=== PATIENT | female | born 1940 | race Caucasian/White ===

== ENCOUNTER 2016-06-15 14:07 | Day surgery (SDC) | payer OTHER ==
[2016-06-15] MEDS ORDERED: LIDOCAINE 1% 5 ML SDV ID PRN (14:47)
[2016-06-15] MEDS ORDERED: LR 1,000 ML IV ONE (14:47)
[2016-06-15] MEDS ORDERED: MIDAZOLAM 2 MG/2 ML VIAL ONE (15:58)
[2016-06-15] MEDS ORDERED: fentaNYL 100 MCG/2 ML INJ ONE (16:10)
[2016-06-15] MEDS ORDERED: PROPOFOL 200 MG/20 ML VIAL ONE (16:11)
--- NOTE | 2016-06-15 19:01 | GPN ---
[f rep st] PROCEDURE NOTE PREPROCEDURE DIAGNOSIS: Past history of colon cancer, needs surveillance colonoscopy. POSTPROCEDURE DIAGNOSIS: Three small colon polyps, status post removal. PROCEDURE: Colonoscopy with biopsies. MEDICATIONS: Monitored anesthesia care. INDICATIONS: The patient is a 76-year-old female with a history of colon cancer, which was resected in 2006. She had stage III colon cancer at that time. She underwent chemotherapy and surgical resec tion. Last colonoscopy was in 2007. She has a pacemaker and is on Xarelto for atrial fibrillation. She is here today for repeat surveillance colonoscopy. The risks and benefits of the procedure were discussed with the patient and consent obtained. The risks include, but are not limited to, bleedin g, perforation, missed lesions, and sedation. The patient is ASA class 3. DESCRIPTION OF PROCEDURE: The adult colonoscope was advanced into the cecum, which appeared normal. The ileocecal valve, appendiceal orifice, ascending colon, hepatic flexure appeared normal. In the transverse colon, there were 2 small polyps, which were removed using cold biopsy forceps. These pasquale yps measured between 1 and 2 mm in diameter. The splenic flexure was normal. The descending colon w as normal. A 2 mm polyp was removed from the sigmoid colon using cold biopsy forceps and sent to [facility] for further evaluation. An anastomosis was seen in the rectosigmoid area. No evidence of rec urrent or residual cancer. Retroflexed views in the rectum were normal. IMPRESSION: 1. Three small colon polyps, removed using cold biopsy forceps. 2. Healthy-appearing anastomosis in the left colon. RECOMMENDATIONS: 1. Discharge to home with escort. 2. Follow up with final biopsy results, which will be available within 10 days. 3. Resume previous diet. 4. Resume previous medications. Okay to resume Xarelto this evening. 5. Repeat colonoscopy to be determined based on the biopsies. If 3 or more polyps are found to be a denomatous, repeat colonoscopy in 3 years. Otherwise, repeat colonoscopy in 5 years. Thank you for allowing me to participate in the care of your patient. Please do not hesitate to call with questions. /[id number]/MODL
== END 2016-06-15 17:30 | disposition home or self-care (01) ==
LOC: FSGY 14:07
PROVIDERS: ATTEND Internal Medicine Gastroenterology
PROC: 0DBN8ZX Excision of Sigmoid Colon, Via Natural or Artificial Opening Endoscopic, Diagnostic (ICD-10-PCS; 2016-06-15)
PROC: 0DBL8ZX Excision of Transverse Colon, Via Natural or Artificial Opening Endoscopic, Diagnostic (ICD-10-PCS; principal; 2016-06-15 15:45)
DX: K63.5 Polyp of colon (principal); Z85.038 Personal history of other malignant neoplasm of large intestine; Z79.01 Long term (current) use of anticoagulants; I10 Essential (primary) hypertension; Z95.0 Presence of cardiac pacemaker; Z95.5 Presence of coronary angioplasty implant and graft; I25.10 Atherosclerotic heart disease of native coronary artery without angina pectoris; Z98.0 Intestinal bypass and anastomosis status
CPT/HCPCS: J2250; J2704; J3010

== ENCOUNTER 2016-10-11 13:48 | Emergency (ER) | payer OTHER ==
--- NOTE | 2016-10-11 14:24 | EDPHY ---
H & P Stated Complaint: Nosebleed since this morning;has eased up;on Xarelto HPI/ROS: HPI CHIEF COMPLAINT: Epistaxis HISTORY OF PRESENT ILLNESS: This patient is a very pleasant 76-year-old female , significant past medical history for AFib on Xarelto, pacemaker, cardiac disease with stents, presents emergency room with left Nare epistaxis. Patient tells me that since 0630 this morning she has had a slow trickle out a left Nare. She cannot get it to stop. Denies trauma. She presents emergency room noted to be hypertensive she does tell me that she usually runs very hypertensive. 200s/100s. She denies chest pain, shortness of breath. Main complaint is epistaxis that has not resolved on Xarelto. Past Medical History: Coronary artery disease, hypertension, AFib on Xarelto, pacemaker Past Surgical History: Left chest pacemaker Social History: Denies daily use of drugs alcohol tobacco products Family History: Noncontributory ROS REVIEW OF SYSTEMS: A comprehensive 10 point review of systems is otherwise negative aside from elements mentioned in the history of present illness. Exam Constitutional triage nursing summary reviewed, vital signs reviewed, awake/ alert. Vital signs noted to be hypertensive Eyes normal conjunctivae and sclera, EOMI, PERRLA. HENT nares: Right Ortega shows dry bright red blood, left Ortega clotted bright red blood, posterior pharynx normal normal inspection, atraumatic, moist mucus membranes, no epistaxis, neck supple/ no meningismus, no raccoon eyes. Respiratory clear to auscultation bilaterally, normal breath sounds, no respiratory distress, no wheezing. Cardiovascular rate normal, regular rhythm, no murmur, no edema, distal pulses normal. Gastrointestinal soft, non-tender, no rebound, no guarding, normal bowel sounds, no distension, no pulsatile mass. Genitourinary no CVA tenderness. Musculoskeletal no midline vertebral tenderness, full range of motion, no calf swelling, no tenderness of extremities, no meningismus, good pulses, neurovascularly intact. Skin pink, warm, & dry, no rash, skin atraumatic. Neurologic awake, alert and oriented x 3, AAOx3, moves all 4 extremities equally, motor intact, sensory intact, CN II-XII intact, normal cerebellar, normal vision, normal speech. Psychiatric normal mood/affect. Heme/Lymph/Immune no lymphadenopathy. Differential Diagnosis: Includes but is not limited to in a particular order epistaxis on Xarelto, recurrent epistaxis, anterior nare bleed. Medical Decision Making: Plan for this patient: The nasal compression at this time. Will see if we can get this stopped with just compression. If unable to get. May need to place packing. Will try silver nitrate stick getting bedside as well as Afrin. Re-evaluation: 1439: This patient did have a recurrence of her epistaxis left near appears to be anterior. I did cauterize it with silver nitrate stick. Nasal clamp was reapplied and will re-evaluate shortly. It is noted her blood pressure is 200/ 100. Patient is compliant with her blood pressure medication but tells me that her blood pressure normally runs very high. 1536: Re-evaluation at this time epistaxis has resolved. She was cauterized with silver nitrate sticks by me. Blood pressure improved 144/80. Denies any complaints at this time. I removed the nasal clip no bleeding. She has been monitored for multiple hours here good hemostasis. Okay to discharge home. She does understand if she has rebleed return to the emergency room after applying direct pressure for 30 minutes and she is unable to get this. Return to the ER. Source: Patient - Personal History Current Tetanus Diphtheria and Acellular Pertussis (TDAP): Yes - Medical/Surgical History Hx Diabetes: No Hx Cardiac Disease: Yes Other PMH: afib. pacemanker. card stents x 8. cardiac arrest - Social History Smoking Status: Never smoked Constitutional: Initial Vital Signs Heart Rate 64 10/11/16 13:53 Respiratory Rate 18 10/11/16 13:53 Blood Pressure 208/119 H 10/11/16 13:53 O2 Sat (%) 96 10/11/16 13:53 O2 Delivery Mode Room Air Allergies/Adverse Reactions: simvastatin [From Zocor] Allergy (Severe, Verified 05/25/16 10:19) Home Medications: Medication Instructions Recorded Aspirin [Aspirin 81mg] 81 mg PO DAILY 08/04/10 CARVEDILOL PHOSPHATE [Coreg Cr] 0 mg PO DAILY 08/04/10 Lisinopril 0 mg PO DAILY 08/04/10 NITROGLYCERIN 0.4 mg SL PRN PRN 08/04/10 Amiodarone HCl 05/25/16 Levothyroxine 05/25/16 Xarelto 05/25/16 Departure - Departure Disposition: Home, Routine, Self-Care Clinical Impression: Epistaxis Condition: Good Instructions: Nosebleed (ED) Additional Instructions: 1. APPLY DIRECT PRESSURE TO YOUR NOSE FOR 30 MINUTES IF HE CANNOT GET THE BLEEDING TO STOP RETURN TO THE EMERGENCY ROOM. Referrals: Chelo Yanes MD [Primary Care Provider] - As per Instructions Neto Hamilton MD [Medical Doctor] - As per Instructions
[2016-10-11] MEDS ORDERED: OXYMETAZOLINE 30 ML NASAL SPRAY ONE (14:27)
[2016-10-11] MEDS ORDERED: SILVER NITRATE APPLICATOR 1 APPL TP ONE (14:29)
[2016-10-11 15:48] VITALS: BP 160/89; PULSE 60; RESP 16; TEMP 97.7; O2SAT 92
== END 2016-10-11 15:48 | disposition home or self-care (01) ==
PROC: 2Y41X5Z Packing of Nasal Region using Packing Material (ICD-10-PCS; principal; 2016-10-11)
DX: R04.0 Epistaxis (principal); I25.10 Atherosclerotic heart disease of native coronary artery without angina pectoris; I10 Essential (primary) hypertension; Z79.01 Long term (current) use of anticoagulants; Z79.82 Long term (current) use of aspirin; Z95.0 Presence of cardiac pacemaker

== ENCOUNTER → 2016-10-14 | Outpatient (CLI) | payer OTHER | LOC: CIMAGING 13:26 | PROVIDERS: ATTEND Internal Medicine Interventional Cardiology | DX: I48.91 Unspecified atrial fibrillation (principal); I51.7 Cardiomegaly; Z79.899 Other long term (current) drug therapy; Z95.0 Presence of cardiac pacemaker | CPT/HCPCS: 71020-PO ==

== ENCOUNTER → 2016-10-20 | Outpatient (CLI) | payer OTHER | LOC: BHFA 13:45 | PROVIDERS: ATTEND Internal Medicine Interventional Cardiology | DX: I50.22 Chronic systolic (congestive) heart failure (principal); Z95.810 Presence of automatic (implantable) cardiac defibrillator; Z79.899 Other long term (current) drug therapy ==

== ENCOUNTER 2017-02-24 10:10 | Emergency (ER) | payer OTHER ==
[2017-02-24 10:17] VITALS: RESP 18; TEMP 97.7
--- NOTE | 2017-02-24 11:12 | EDPHY ---
HPI/HX/ROS/PE/MDM Narrative: CHIEF COMPLAINT: Left calf pain HPI: The patient is an anticoagulated 76 y/o female with a history of multiple cardiac stents who presents with left calf pain onset a few days ago. She was on a long car ride to and from [place] this weekend and while there sat and watched a hockey game. Tuesday morning she woke with the sensation of a pulled left calf muscle. This pain progressed through the night and has been moderate in severity since then. She denies chest pain, dyspnea, fever, or preceding trauma. She is compliant with her Xarelto. REVIEW OF SYSTEMS: Aside from elements discussed in the HPI, a comprehensive 10-point review of systems was reviewed and is negative. PMH: 8 cardiac stents in 2006 - Xarelto; pacemaker SOCIAL HISTORY: at bedside. Lives in [place]. Retired. PHYSICAL EXAM: General:Patient is alert, in no acute distress. ENT:Eyes are normal to inspection. ENT inspection normal. Neck: Normal inspection. Full range of motion. Respiratory:No respiratory distress. Breath sounds normal bilaterally. Cardiovascular: Regular rate and rhythm. Strong peripheral pulses. Normal cap refill. Abdomen:The abdomen is nontender to palpation. There are no peritoneal signs. Back: Normal to inspection. No tenderness to palpation. Skin: Normal color. No rash. Warm and dry. Extremities: Tenderness to left calf. 1+ pedal edema bilaterally. Normal appearance. Full range of motion. Normal cap refill. 2+DP. Normal temperature. Compartments soft. Neuro: Oriented x3. Normal motor function. Normal sensory function. ED Course: Plan for left lower extremity ultrasound to rule out DVT. US shows hematoma. I discussed further imaging options with the radiologist, who does not recommend further imaging today. I reassessed patient and discussed these results. Recommend reevaluation with ultrasound in a few days. She is comfortable with this plan for follow up. Strict return precautions given. MDM: This patient presents with calf pain in setting of Xarelto use. US shows no clot, but hematoma. There is no evidence of neurovascular compromise, severe blood loss or compartment syndrome. Patient is comfortable with plan to be discharged home with repeat US. - Data Points Imaging Results: Imaging Impressions Extremity Venous Study 02/24/17 10:23 Impression: 1.There is no sonographic evidence of deep or superficial vein thrombosis in the left lower extremity. 2. There is a 6.8 x 5.9 x 2.3 cm likely hematoma corresponding to area of palpable concern in the left calf. Follow-up, as clinically directed. Findings were discussed with Dario Guzman MD at 11:05 AM, on 02/24/2017. Imaging: Discussed imaging studies w/ manager call Radiologist General Time Seen by Provider: 02/24/17 10:27 Initial Vital Signs: Initial Vital Signs Temperature (C) 36.5 C 02/24/17 10:14 Heart Rate 60 02/24/17 10:14 Respiratory Rate 18 02/24/17 10:14 Blood Pressure 197/97 H 02/24/17 10:14 O2 Sat (%) 96 02/24/17 10:14 O2 Delivery Mode Room Air Allergies/Adverse Reactions: simvastatin [From Zocor] Allergy (Severe, Verified 02/24/17 10:14) Home Medications: Medication Instructions Recorded Aspirin [Aspirin 81mg] 81 mg PO DAILY 08/04/10 CARVEDILOL PHOSPHATE [Coreg Cr] 0 mg PO DAILY 08/04/10 Lisinopril 0 mg PO DAILY 08/04/10 NITROGLYCERIN 0.4 mg SL PRN PRN 08/04/10 Amiodarone HCl 05/25/16 Levothyroxine 05/25/16 Xarelto 05/25/16 Departure - Departure Disposition: Home, Routine, Self-Care Clinical Impression: Hematoma, left calf Condition: Good Instructions: Hematoma (ED) Additional Instructions: Follow up with your primary care provider for another ultrasound of your leg in the next few days. Return to the ED for severe pain, fever, chest pain, or shortness of breath. Referrals: Chelo Yanes MD [Primary Care Provider] - As per Instructions Report Scribed for: Dario Guzman Report Scribed by: Janette Durham Date of Report: 02/24/17 Time of Report: 11:35 Physician Review and Approval Statement: Portions of this note were transcribed by an ED scribe. I personally performed the history, physical exam, and medical decision making; and confirm the accuracy of the information in the transcribed note.
[2017-02-24 11:53] VITALS: BP 149/84; PULSE 63; O2SAT 94
== END 2017-02-24 12:17 | disposition home or self-care (01) ==
DX: M79.81 Nontraumatic hematoma of soft tissue (principal); Z95.0 Presence of cardiac pacemaker; Z95.5 Presence of coronary angioplasty implant and graft; Z79.82 Long term (current) use of aspirin; Z79.01 Long term (current) use of anticoagulants

== ENCOUNTER → 2018-01-11 | Outpatient (CLI) | payer OTHER | LOC: BHFA 10:45 | PROVIDERS: ATTEND Internal Medicine | DX: I48.91 Unspecified atrial fibrillation (principal); I50.9 Heart failure, unspecified; I10 Essential (primary) hypertension ==